=== PATIENT | female | born 1975 | race American Indian/Alaskan Native ===

== ENCOUNTER 2017-08-15 04:05 | Emergency (ER) | payer SELFPAY ==
[2017-08-15] MEDS ORDERED: Sodium Chloride 0.9% 1,000 ML IV STA (04:25)
[2017-08-15 04:55] LABS: BASO # 0.01 K/mm3 (0.0-2.0); BASO % 0.2 % (0.0-3.0); EOS # 0.1 (0.0-0.7); EOS % 1.3 % (1.5-5.0); GRAN # 3.96 (1.4-6.5); GRAN % 63.4 % (50.0-68.0); HEMOGLOBIN 8.9 g/dL (12.0-16.0); LYMPH # 1.8 (1.2-3.4); LYMPH % 28.5 % (22.0-35.0); MEAN CELL VOLUME 68.9 fl (80.0-105.0); MEAN CORPUSCULAR HEMOGLOBIN 20.6 pg (25.0-35.0); MEAN PLATELET VOLUME 9.6 fl (7.0-11.0); MONO # 0.4 (0.1-0.6); MONO % 6.6 % (1.0-6.0); RBC 4.31 10^6/uL (3.5-6.1); RED CELL DISTRIBUTION WIDTH 18.4 % (11.5-14.5); WHITE BLOOD COUNT 6.2 10^3/ul (4.5-11.0)
[2017-08-15 05:02] LABS: ALB/GLOB RATIO 1.1 (1.1-1.8); ALBUMIN 4.6 g/dL (3.0-4.8); ALT/SGPT 9 U/L (7-56); AST/SGOT 58 U/L (14-36); BLOOD UREA NITROGEN 6 mg/dL (7-21); CALCIUM 9.2 mg/dL (8.4-10.5); GFR AFRICAN-AMERICAN > 60; GFR NON-AFRICAN AMERICAN > 60; LIPASE 233 U/L (23-300)
--- NOTE | 2017-08-15 05:22 | ED PDOC ---
Arrival/HPI - History of Present Illness Time/Duration: < week Symptom Onset: Sudden Symptom Course: Unchanged Activities at Onset: Rest Context: Home - General Chief Complaint: Abdominal Pain Time Seen by Provider: 08/15/17 04:09 - History of Present Illness Narrative History of Present Illness (Text): 08/15/17 05:17 This is a 41 year old female with a PMH of fibroids who presents to the ED with 2 day history of abdominal pain. Patient also admits to vomiting several times and currently has no appetite. Patient was in [place] 6 weeks ago, and went to the ER for similar symptoms. CT at that time showed fibroid inflammation and patient was discharged on motrin 800mg, which reduced pain. Patient states that current pain is similar to pain 6 weeks ago. LMP was last week and cycles are regular. She tried motrin 800mg yesterday for the pain, but was not helpful. Patient denies chest pain, SOB, vaginal discharge, vaginal bleeding, fever, chills and headaches. [facility] Past Medical History - Provider Review Nursing Documentation Reviewed: Yes - Infectious Disease Hx of Infectious Diseases: None - Genitourinary/Gynecological Other/Comment: fibroids - Psychiatric Hx Substance Use: No - Surgical History Other/Comment: left ankle screw and plate - Anesthesia Hx Anesthesia: No Family/Social History - Physician Review Nursing Documentation Reviewed: Yes Family/Social History: Unknown Family HX Smoking Status: Never Smoked Hx Alcohol Use: No Hx Substance Use: No Allergies/Home Meds Allergies/Adverse Reactions: Allergies No Known Allergies Allergy (Verified 08/15/17 04:18) Review of Systems - Physician Review All systems were reviewed & negative as marked: Yes - Review of Systems Constitutional: Normal Eyes: Normal ENT: Normal Respiratory: Normal. absent: SOB Cardiovascular: Normal. absent: Chest Pain Gastrointestinal: Abdominal Pain, Nausea, Vomiting. absent: Diarrhea, Hematochezia, Hematemesis Genitourinary Female: Normal. absent: Vaginal Bleeding, Vaginal Discharge Musculoskeletal: Normal Skin: Normal Neurological: Normal Endocrine: Normal Hemo/Lymphatic: Normal Physical Exam Vital Signs Reviewed: Yes Temperature: Afebrile Blood Pressure: Hypertensive Pulse: Regular Respiratory Rate: Normal Appearance: Positive for: Well-Appearing, Non-Toxic, Comfortable Pain Distress: None Mental Status: Positive for: Alert and Oriented X 3 - Systems Exam Head: Present: Atraumatic, Normocephalic Pupils: Present: PERRL Extroacular Muscles: Present: EOMI Conjunctiva: Present: Normal Mouth: Present: Moist Mucous Membranes Neck: Present: Normal Range of Motion Respiratory/Chest: Present: Clear to Auscultation, Good Air Exchange. No: Respiratory Distress, Accessory Muscle Use Cardiovascular: Present: Regular Rate and Rhythm, Normal S1, S2. No: Murmurs Abdomen: Present: Tenderness, Normal Bowel Sounds. No: Distention, Peritoneal Signs, McBurney's Point Tender Back: Present: Normal Inspection Upper Extremity: Present: Normal Inspection. No: Cyanosis, Edema Lower Extremity: Present: Normal Inspection. No: Edema Neurological: Present: Speech Normal, Motor Func Grossly Intact, Normal Sensory Function Skin: Present: Warm, Dry, Normal Color. No: Rashes Psychiatric: Present: Alert, Normal Insight, Normal Concentration Vital Signs Temp Pulse Resp BP Pulse Ox 08/15/17 04:06 98.5 F 71 18 152/92 H 100 Medical Decision Making ED Course and Treatment: 08/15/17 05:24 This is a 41 year old female with PMH of fibroids presenting to the ER for 2 day history abdominal pain and vomiting. Plan: -U/A, culture -Abd/pelvis CT -Urine -Torodol, Zofran -CBC, CMP -Lipase, Mg Progress: (Apolinar Perez) - Lab Interpretations Lab Results: 08/15/17 04:44 08/15/17 04:44 Lab Results 08/15/17 05:45: Urine Color Light yellow, Urine Appearance Clear, Urine pH 6.5, Ur Specific [place] 1.010, Urine Protein Negative, Urine Glucose (UA) Negative, Urine Ketones Trace H, Urine Blood Trace-lysed H, Urine Nitrate Negative, Urine Bilirubin Negative, Urine Urobilinogen 0.2, Ur Leukocyte Esterase Negative, Urine RBC 2 - 5, Urine WBC 0 - 2, Ur Epithelial Cells 0 - 2, Urine Bacteria Few 08/15/17 04:44: Sodium 142, Potassium 4.1, Chloride 103, Carbon Dioxide 28, Anion Gap 15, BUN 6 L, Creatinine 0.6 L, Est GFR ( Amer) > 60, Est GFR ( Non-Af Amer) > 60, Random Glucose 107, Calcium 9.2, Magnesium 2.2, Total Bilirubin 0.4, AST 58 H, ALT 9, Alkaline Phosphatase 46, Total Protein 8.7 H, Albumin 4.6, Globulin 4.1, Albumin/Globulin Ratio 1.1, Lipase 233 08/15/17 04:44: WBC 6.2, RBC 4.31, Hgb 8.9 L, Hct 29.7 L, MCV 68.9 L, MCH 20.6 L , MCHC 30.0 L, RDW 18.4 H, Plt Count 398, MPV 9.6, Gran % 63.4, Lymph % (Auto) 28.5, Camp % (Auto) 6.6 H, Eos % (Auto) 1.3 L, Baso % (Auto) 0.2, Gran # 3.96, Lymph # (Auto) 1.8, Camp # (Auto) 0.4, Eos # (Auto) 0.1, Baso # (Auto) 0.01 - RAD Interpretation Radiology Orders: 08/15/17 04:25 ABD & PELVIS IV CONTRAST ONLY [CT] Stat - Medication Orders Current Medication Orders: Discontinued Medications Sodium Chloride (Sodium Chloride 0.9%) 1,000 mls @ 1,000 mls/hr IV .Q1H STA Stop: 08/15/17 05:24 Last Admin: 08/15/17 05:00 Dose: 1,000 mls/hr eMAR Start Stop Document 08/15/17 05:00 IT (Rec: 08/15/17 06:08 IT [id number]) Intravenous Solution Start Date 08/15/17 Start Time 05:00 End Date 08/15/17 Ketorolac Tromethamine (Toradol) 30 mg IVP STAT STA Stop: 08/15/17 04:26 Last Admin: 08/15/17 06:08 Dose: 30 mg MAR Pain Assessment Document 08/15/17 06:08 IT (Rec: 08/15/17 06:09 IT [id number]) Pain Reassessment Is this a pain reassessment? No Sleep Is patient sleeping during reassessment? No Presence of Pain Presence of Pain Yes Pain Scale Used Pain Scale Used Numeric IVP Administration Document 08/15/17 06:08 IT (Rec: 08/15/17 06:09 IT [id number]) Charges for Administration # of IVP Administrations 1 Ondansetron HCl (Zofran Inj) 4 mg IVP STAT STA Stop: 08/15/17 04:26 Last Admin: 08/15/17 06:08 Dose: 4 mg IVP Administration Document 08/15/17 06:08 IT (Rec: 08/15/17 06:08 IT [id number]) Charges for Administration # of IVP Administrations 1 - PA / FIELD COURT RESEARCHER / Resident Statement MD/DO has reviewed & agrees with the documentation as recorded. MD/DO has examined the patient and agrees with the treatment plan. Disposition/Present on Arrival - Present on Arrival Any Indicators Present on Arrival: No History of DVT/PE: No History of Uncontrolled Diabetes: No Urinary Catheter: No History of Decub. Ulcer: No History Surgical Site Infection Following: None - Disposition Have Diagnosis and Disposition been Completed?: Yes Disposition Time: 07:00 - Disposition Diagnosis: Iron (Fe) deficiency anemia, Uterine fibroid Disposition: HOME/ ROUTINE Patient Problems: Current Active Problems Problem Status Onset Iron (Fe) deficiency anemia Acute Condition: GOOD Discharge Instructions (ExitCare): Uterine Fibroids, Anemia Caused by Low Iron , Adult (DC) Additional Instructions: ELIU WATKINS, thank you for letting us take care of you today. The emergency medical care you received today was directed at your acute symptoms. If you were prescribed any medication, please fill it and take as directed. It may take several days for your symptoms to resolve. Return to the Emergency Department if your symptoms worsen, do not improve, or if you have any other problems. Please contact your doctor or call one of the physicians/clinics you have been referred to that are listed on the Patient Visit Information form that is included in your discharge packet. Bring any paperwork you were given at discharge with you along with any medications you are taking to your follow up visit. Our treatment cannot replace ongoing medical care by a primary care provider outside of the emergency department. Thank you for allowing the [facility] team to be part of your care today. Follow up with your primary care doctor and your FREELANCE ART DIRECTOR doctor next week for re- evaluation and further management. Referrals: Gerardo Meyers NS [Primary Care Provider] - Follow up with primary Forms: [employer] ([place])
[2017-08-15] MEDS ORDERED: Iohexol 350 MG/100 ML VIAL ONE (05:44)
[2017-08-15 06:23] LABS: PH,URINE 6.5 (4.7-8.0); URINE BILIRUBIN NEGATIVE (NEGATIVE); URINE BLOOD TRACE-LYSED (NEGATIVE); URINE GLUCOSE (UA) NEGATIVE (NEGATIVE); URINE LEUKOCYTE ESTERASE NEGATIVE Leu/uL (NEGATIVE); URINE PROTEIN NEGATIVE mg/dL (<30 mg/dL); URINE UROBILINOGEN 0.2 E.U./dL (<1 E.U./dL)
[2017-08-15 06:24] LABS: URINE APPEARANCE CLEAR (CLEAR); URINE COLOR LIGHT YELLOW (YELLOW)
[2017-08-15 06:31] LABS: URINE EPITHELIAL CELLS 0 - 2 /hpf (0-5); URINE WBC 0 - 2 /hpf (0-6)
[2017-08-15 06:32] LABS: URINE BACTERIA FEW (NEG)
--- NOTE | 2017-08-15 06:45 | CT ---
EXAM: CT Abdomen and Pelvis With Intravenous Contrast CLINICAL HISTORY: 41 years old, female; Pain; Abdominal pain; Additional info: Diffuse abdominal tenderness TECHNIQUE: Axial computed tomography images of the abdomen and pelvis with intravenous contrast. All CT scans at this facility use at least one of these dose optimization techniques: automated exposure control; mA and/or kV adjustment per patient size (includes targeted exams where dose is matched to clinical indication); or iterative reconstruction. Coronal and sagittal reformatted images were created and reviewed. CONTRAST: 100 mL of [id number] administered intravenously. COMPARISON: No relevant prior studies available. FINDINGS: Lung bases: There is a 5 mm right basilar pulmonary nodule. Followup as per Fleischner criteria is recommended. There is a calcified granuloma in the right lung. ABDOMEN: Liver: Unremarkable. No mass. Gallbladder and bile ducts: Unremarkable. No calcified stones. No ductal dilation. Pancreas: Unremarkable. No mass. No ductal dilation. Spleen: Unremarkable. No splenomegaly. Adrenals: Unremarkable. No mass. Kidneys and ureters: There is mild fullness of the right renal collecting system. No solid mass. Stomach and bowel: Unremarkable. No obstruction. No mucosal thickening. PELVIS: Appendix: No findings to suggest acute appendicitis. Bladder: Unremarkable. No mass. Reproductive: There is a massively enlarged fibroid uterus measuring approximately 23.7 x 18.6 x 11.4 cm. [employer] consultation is recommended. If surgical intervention is not performed, close clinical and imaging followup is recommended. ABDOMEN and PELVIS: Intraperitoneal space: Unremarkable. No free air. No significant fluid collection. Bones/joints: No acute fracture. No dislocation. Soft tissues: Unremarkable. Vasculature: Unremarkable. No abdominal aortic aneurysm. Lymph nodes: Unremarkable. No enlarged lymph nodes. IMPRESSION: 1. There is a 5 mm right basilar pulmonary nodule. Followup as per Fleischner criteria is recommended. 2. There is a massively enlarged fibroid uterus measuring approximately 23.7 x 18.6 x 11.4 cm. [employer] consultation is recommended. If surgical intervention is not performed, close clinical and imaging followup is recommended.
[2017-08-15 07:00] VITALS: BP 141/82; PULSE 70; RESP 17; TEMP 98; O2SAT 98
== END 2017-08-15 07:00 | disposition home or self-care (01) ==
LOC: ED 04:05
DX: D25.9 Leiomyoma of uterus, unspecified (principal); D50.9 Iron deficiency anemia, unspecified
CPT/HCPCS: 74177; 80053; 81001; 83690; 83735; 85025; 87086; 96374; 96375; 99283; J1885; J2405; J7030; Q9967